=== PATIENT | female | born 1985 | race Caucasian/White ===

== ENCOUNTER 2023-01-01 22:53 | Emergency (ER) | payer BC, MEDICAID, SELFPAY ==
--- NOTE | 2023-01-01 23:09 | ED_ITS ---
HPI - Abdominal Pain General: Chief Complaint: Abdominal Pain Stated Complaint: ABD Pain Time Seen by Provider: 01/01/23 23:08 History of Present Illness: 37-year-old female comes in today with right upper quadrant abdominal pain radiating to under her right rib area. Patient appears nontoxic. Patient appears no acute distress. Patient reports history of gallbladder removal. Darrian piña takes Cymbalta for depression and Prilosec for reflux. Associated Symptoms: Reports chills, diarrhea and nausea Review of Systems General: Reports: 10 or more systems reviewed and unremarkable except in HPI and below Const: Reports: chills Card: Denies: chest pain or palpitations Resp: Reports: dyspnea GI: Reports: abdominal pain, nausea and diarrhea : Denies: difficulty voiding Musc: Reports: back pain Skin/Breast: Denies: rash Neuro: Denies: headache(s) Physical Exam Const: COMMON NORMALS: alert HENMT: COMMON NORMALS: normocephalic HEAD & SCALP: normocephalic Neck/C-Spine: COMMON NORMALS: full ROM Chest: COMMONS NORMALS: normal inspection of the chest Resp: COMMON NORMALS: normal respiratory effort and clear to auscultation bilaterally AUSCULTATION: clear to auscultation bilaterally Cardio: COMMON NORMALS: regular rate and regular rhythm RATE: regular rate RHYTHM: regular rhythm GI: COMMON NORMALS: Soft to palpation AUSCULTATION: Yes normoactive bowel sounds PALPATION: Yes Soft to palpation and Yes Tenderness to palpation present (GI) Details: RUQ : BLADDER/KIDNEY EXAM: Yes CVA tenderness on the right Back/Pelvis: COMMON NORMALS: thoracic and lumbar spine normal to inspection GENERAL BACK: Yes CVA tenderness Neuro: SENSORIUM/ORIENTATION: Yes alert Skin: COMMON NORMALS: turgor normal GENERAL SKIN EXAM: turgor normal Course Vital Signs: Vital signs: Vital Signs Temperature 98.1 F 01/01/23 23:27 Pulse Rate 89 01/01/23 23:27 Respiratory Rate 16 01/01/23 23:27 Blood Pressure 125/93 01/01/23 23:27 Pulse Oximetry 99 01/01/23 23:27 Oxygen Delivery Me thod Room Air 01/01/23 23:27 MDM - Abdominal Pain Medical Decision Making 37-year-old female comes in today with right side abdominal pain. Patient reports it feels like it is right under her rib. Patient appears nontoxic. Patient appears in no acute distress. Patient reports 2 nights ago the pain was so bad she cannot sleep. On exam patient has some CVA tenderness on right side. Respirations are even lungs are clear to auscultation. Skin is warm and dry. Differential diagnoses includes not limited to common bile duct stone, renal calculi, constipation, pancreatitis, colitis. Laboratory values were unremarkable. Urinalysis showed no signs of infection. CT of the abdomen pelvis noted a 11 mm cystic mass to the right ovarian with peripheral enhancement suggesting a hemorrhagic cyst. There was also a nonobstructing 2.5 mm calculus in the left kidney lower pole, normal appendix and a small umbilical hernia. No signs of surgical abdomen was noted. Reviewed exam recommending treatment follow-up with primary care or [facility] SERVICE TRAY ATTENDANT to follow ovarian cyst. Lab Data 01/01/23 23:21 01/01/23 23:21 Labs/Radiology: Radiology Impressions Abdomen/Pelvis CT 01/01/23 23:17 IMPRESSION: 1. Small 11 mm cystic mass within the right ovary exhibiting mild peripheral enhancement could represent a small hemorrhagic cyst. No further workup needed. 2. Nonobstructing 2.5 mm calculus in the lower pole of the left kidney. 3. Small umbilical hernia containing fat 4. Normal appendix Laboratory Results WBC 6.6 10^3/uL (4.0-10.0) 01/01/23 23: RBC 4.86 10^6/uL (4.1-5.3) 01/01/23 23:21 Hgb 13.7 g/dL (11.5-15.3) 01/01/23 23: Hct 42.5 % (37.0-47.0) 01/01/23 23:21 MCV 87.4 fl (81-99) 01/01/23 23: MCH 28.2 pg (28.0-34.0) 01/01/23 23: MCHC 32.2 g/dL (30.0-36.0) 01/01/23 23: RDW 12.9 % (12.1-15.1) 01/01/23 23:21 Plt Count 259 10^3/cmm (130-400) 01/01/23 23: MPV 11.5 fL (7.4-10.4) H 01/01/23 23:21 Neut % (Auto) 59.6 % 01/01/23 23:21 Lymph % (Auto) 31.3 % 01/01/23 23:21 [place] % (Auto) 8.8 % 01/01/23 23:21 Eos % (Auto) 0.0 % 01/01/23 23:21 Baso % (Auto) 0.0 % 01/01/23 23:21 Neut # (Auto) 3.93 10^3/uL (1.8-7.7) 01/01/23 23:21 Lymph # (Auto) 2.1 10^3/uL (0.8-4.8) 01/01/23 23:21 [place] # (Auto) 0.6 10^3/uL (0.2-0.9) 01/01/23 23:21 Eos # (Auto) 0.0 10^3/uL (0.0-0.8) 01/01/23 23:21 Baso # (Auto) 0.0 10^3/uL (0.0-0.1) 01/01/23 23:21 Nucleated RBC % (auto) 0 % 01/01/23 23:21 Nucleated RBCs # 0.0 /100WBC 01/01/23 23:21 Sodium 134 mmol/L (136-145) L 01/01/23 23:21 Potassium 3.7 mmol/L (3.5-5.1) 01/01/23 23:21 Chloride 103 mmol/L (98-107) 01/01/23 23:21 Carbon Dioxide 18 mmol/L (22-29) L 01/01/23 23:21 Anion Gap 16.7 (5-19) 01/01/23 23:21 BUN 5 mg/dL (6-20) L 01/01/23 23:21 Creatinine 0.6 mg/dL (0.5-0.9) 01/01/23 23:21 GFR Calculation 112.5 mL/min (90-130) 01/01/23 23:21 Glucose 90 mg/dL (65-115) 01/01/23 23:21 Calculated Osmolality 275 mOsm/kg (285-295) L 01/01/23 23:21 Calcium 8.9 mg/dL (8.5-10.5) 01/01/23 23:21 Total Bilirubin 0.9 mg/dL (0.15-1.2) 01/01/23 23:21 AST 12 U/L (0-32) 01/01/23 23:21 ALT 10 U/L (0-33) 01/01/23 23:21 Alkaline Phosphatase 39 U/L (35-105) 01/01/23 23:21 Total Protein 6.8 g/dL (6.6-8.7) 01/01/23 23:21 Albumin 4.1 g/dL (3.5-5.2) 01/01/23 23:21 Globulin 2.7 g/dL (1.3-4.6) 01/01/23 23:21 Lipase 19 U/L (13-60) 01/01/23 23:21 HCG, Qual Negative (Negative) 01/01/23 23:21 Urine Color Yellow (Yellow) 01/01/23 00:58 Urine Appearance Clear (CLEAR) 01/01/23 00:58 Urine pH 6.5 (5-7) 01/01/23 00:58 Ur Specific [place] 1.005 (1.005-1.030) 01/01/23 00:58 Urine Protein 1+ (Negative) H 01/01/23 00:58 Urine Glucose (UA) Norm (Normal) 01/01/23 00:58 Urine Ketones 2+ (Negative) H 01/01/23 00:58 Urine Blood Neg (Negative) 01/01/23 00:58 Urine Nitrate Negative (Negative) 01/01/23 00:58 Urine Bilirubin Neg (Negative) 01/01/23 00:58 Urine Urobilinogen 1 mg/dL (Negative) H 01/01/23 00:58 Ur Leukocyte Esterase Trace (Negative) H 01/01/23 00:58 Urine RBC 0-4 /hpf (0-2) H 01/01/23 00:58 Urine WBC 0-4 /hpf (0-5) H 01/01/23 00:58 Ur Squamous Epith Cells 5-10 /hpf (0-5) H 01/01/23 00:58 Amorphous Sediment Not Reportable 01/01/23 00:58 Urine Bacteria Trace /hpf (NONE) 01/01/23 00:58 Discharge Plan Discharge Patient Disposition: Home Clinical Impression: Right ovarian cyst Condition: Stable Prescriptions: New naproxen 500 mg tablet 500 mg PO Q12H Qty: 20 0RF hydrocodone-acetaminophen 5-325 mg tablet 1 tab PO Q8H PRN (Reason: pain (scale score 7-10)) Qty: 6 0RF Discharge Orders: Discharge ED (Routine); Ordered 01/02/23 Ordered By: Randall Ewing Discharge Diet: Usual diet Discharge Activity: Increase activity as tolerated Patient Instructions: Ovarian Cyst (ED), Opioid Safety Activity Restrictions/Additional Instructions: Home and rest. Drink plenty of fluids. Use naproxen 500 mg twice a day to help with pain and inflammation of the ovarian cyst. Use hydrocodone with acetaminophen as needed for severe pain. Follow-up with [facility]OD SERVICE TRAY ATTENDANT for further treatment and evaluation. Return to ER for new concerns or worsening symptoms such as high fever greater than 100.4, blood in vomit or stool, or uncontrolled pain. Coding Level of Care Code ED Gyn Physician for Alen Colón
--- NOTE | 2023-01-01 23:17 | CTR_ITS ---
PROCEDURE INFORMATION: Exam: CT Abdomen And Pelvis With Contrast Exam date and time: 01/01/2023 11:44 PM Age: 37 years old Clinical indication: Abdominal pain; Localized; Right upper quadrant (ruq); Prior surgery; Surgery date: 6+ months; Surgery type: Gb. Csection x4; Patient HX: Ruq pain with fever; Additional info: Right upper abd pain, fever TECHNIQUE: Imaging protocol: Computed tomography of the abdomen and pelvis with contrast. Radiation optimization: All CT scans at this facility use at least one of these dose optimization techniques: automated exposure control; mA and/or kV adjustment per patient size (includes targeted exams where dose is matched to clinical indication); or iterative reconstruction. Contrast material: OMNI 350; Contrast volume: 100 ml; Contrast route: INTRAVENOUS (IV); REPORTING DATA: Count of CT and Cardiac NM exams in prior 12 months: This patient has received 0 known CTs and 0 known cardiac nuclear medicine studies in the 12 months prior to the current study. COMPARISON: No relevant prior studies available. RADIATION DOSE METRICS: Total DLP (mGy-cm): 549.53 FINDINGS: Liver: Normal. No mass. Gallbladder and bile ducts: Status post cholecystectomy. Pancreas: Normal. No ductal dilation. Spleen: Normal. No splenomegaly. Adrenal glands: Normal. No mass. Kidneys and ureters: There is a 2.5 mm nonobstructing calculus seen in the lower pole of the left kidney. Stomach and bowel: Unremarkable. No obstruction. No mucosal thickening. Appendix: The appendix is visualized and is normal in configuration. Intraperitoneal space: Unremarkable. No free air. No significant fluid collection. Vasculature: Unremarkable. No abdominal aortic aneurysm. Lymph nodes: Unremarkable. No enlarged lymph nodes. Urinary bladder: Unremarkable as visualized. Reproductive: There is 11 mm cystic mass seen within the right ovary exhibiting mild peripheral enhancement likely representing a small hemorrhagic cyst. The uterus is retroverted. Bones/joints: Unremarkable. No acute fracture. Soft tissues: There is a small umbilical hernia present containing fat. CT/CT abdomen pelvis w con* [id number] IMPRESSION: 1. Small 11 mm cystic mass within the right ovary exhibiting mild peripheral enhancement could represent a small hemorrhagic cyst. No further workup needed. 2. Nonobstructing 2.5 mm calculus in the lower pole of the left kidney. 3. Small umbilical hernia containing fat 4. Normal appendix
[2023-01-01 23:22] VITALS: BP 125/93; PULSE 89; RESP 16; TEMP 36.7; O2SAT 99; BMI 28.3
[2023-01-01 23:27] VITALS: BP 125/93; PULSE 89; RESP 16; TEMP 36.7; O2SAT 99
[2023-01-01 23:29] LABS: Hematocrit 42.5 % (37.0-47.0); Hemoglobin 13.7 g/dL (11.5-15.3); Lymphocytes # 2.1 10^3/uL (0.8-4.8); Lymphocytes % 31.3 %; Mean Corpuscular HGB Conc 32.2 g/dL (30.0-36.0); Mean Corpuscular Hemoglobin 28.2 pg (28.0-34.0); Mean Corpuscular Volume 87.4 fl (81-99); Mean Platelet Volume 11.5 fL (7.4-10.4); Monocytes # 0.6 10^3/uL (0.2-0.9); Monocytes % 8.8 %; Neutrophils # 3.93 10^3/uL (1.8-7.7); Neutrophils % 59.6 %; Nucleated Red Blood Cells % 0 %; Platelet Count 259 10^3/cmm (130-400); Red Blood Count 4.86 10^6/uL (4.1-5.3); Red Cell Distribution Width 12.9 % (12.1-15.1); White Blood Count 6.6 10^3/uL (4.0-10.0)
--- NOTE | 2023-01-01 23:42 | ECG_ITS ---
[facility] Test Date: 2023-01-01 Pat Name: Darya Johnson Department: Room: Gender: Female Rn Document Improvement Specialist: : [id number] Requested By: Randall Michelle Order Number: [id number] Yokasta MD: Shane Almeida M.D. Measurements Intervals [place] Rate: 79 P: 70 MT: 171 QRS: 61 QRSD: 97 T: 51 QT: 361 QTc: 416 Interpretive Statements SINUS RHYTHM POSSIBLE LEFT ATRIAL ENLARGEMENT [-0.1mV P-WAVE IN V1/V2] POSSIBLE RIGHT VENTRICULAR CONDUCTION DELAY [RSR (QR) IN V1/V2] No previous ECG available for comparison Electronically Signed On 01-02-2023 1:04:33 CDT by Shane Almeida M.D. [email or web address] Ne[employer] [email or web address] c. [email or web address] [email or web address] [email or web address]/store/NU/[id number] f
[2023-01-01 23:46] LABS: Alanine Aminotransferase 10 U/L (0-33); Albumin Level 4.1 g/dL (3.5-5.2); Alkaline Phosphatase 39 U/L (35-105); Anion Gap 16.7 (5-19); Aspartate Amino Transferase 12 U/L (0-32); Blood Urea Nitrogen 5 mg/dL (6-20); Calcium 8.9 mg/dL (8.5-10.5); Carbon Dioxide 18 mmol/L (22-29); Chloride 103 mmol/L (98-107); Globulin 2.7 g/dL (1.3-4.6); Glomerular Filtration Rate 112.5 mL/min (90-130); Glucose 90 mg/dL (65-115); Lipase 19 U/L (13-60); Osmolality Calculated 275 mOsm/kg (285-295); Potassium 3.7 mmol/L (3.5-5.1); Sodium 134 mmol/L (136-145); Total Bilirubin 0.9 mg/dL (0.15-1.2); Total Protein 6.8 g/dL (6.6-8.7)
[2023-01-01 23:48] LABS: HCG, Serum Qual Negative (Negative)
[2023-01-01] MEDS: iohexol 350 mg/mL 500 mL Btl (per mL) IV (23:49)
--- NOTE | 2023-01-02 01:00 | PC.NURSE ---
Pt sent home with Chelsea per FREELANCE RECRUITER orders.
[2023-01-02 01:10] LABS: Add Urine Microscopic? YES; Bilirubin Urine Neg (Negative); Blood Urine Neg (Negative); Glucose Urine UA Norm (Normal); Ketones Urine 2+ (Negative); Leukocyte Esterase Urine Trace (Negative); Nitrate Urine Negative (Negative); Protein Urine 1+ (Negative); Specific Gravity, Urine 1.005 (1.005-1.030); Urine Appearance Clear (CLEAR); Urine Color Yellow (Yellow); Urobilinogen Urine 1 mg/dL (Negative); pH Urine 6.5 (5-7)
[2023-01-02 01:11] LABS: Bacteria Urine TRACE /hpf; RBC Urine 0-4 /hpf (0-2); WBC Urine 0-4 /hpf (0-5)
--- NOTE | 2023-01-04 08:11 | DCPLANNER ---
Addendum entered by Coni Parham 01/21/23 07:31: Patient attended appointment at [facility] Addendum entered by Coni Parham 01/13/23 12:18: Patient has a follow up appointment scheduled for Thursday, January 19, 2023 at 1:[address] Nickerson at [facility]. Original Note: eligibility manager had message to schedule a follow up appointment for patient with [facility] FAMILY TE[facility]. eligibility manager sent patients information to the front office staff at [facility]. Patients information will be printed and reviewed. Clinic will call patient with appointment information.
--- NOTE | 2023-01-04 11:24 | DCPLANNER ---
business segment manager was triggered to call patient due to no primary care physician - patient does not live in the area.
== END 2023-01-02 00:58 | disposition home or self-care (01) ==
PROVIDERS: Emergency Provider Nurse Practitioner Family
DX: N83.201 Unspecified ovarian cyst, right side (principal)
CPT/HCPCS: 36415; 74177; 80053; 81001; 83690; 84703; 85025; 93005; 99285; Q9967

== ENCOUNTER → 2023-01-19 14:40 | Outpatient (BNVA) | payer BC, MEDICAID, SELFPAY | PROVIDERS: Visit Provider Obstetrics & Gynecology | DX: R30.0 Dysuria (principal); Z12.4 Encounter for screening for malignant neoplasm of cervix | CPT/HCPCS: 84315; 87086; 87624 ==